=== PATIENT | male | born 1950 | race Caucasian/White ===

== ENCOUNTER 2017-04-30 11:23 | Outpatient (CLI) | payer MEDICARE, OTHER ==
--- NOTE | 2017-04-30 17:19 | Ultrasound Report ---
THYROID ULTRASOUND: 04/30/2017 CLINICAL INDICATION: Left nodule. TECHNIQUE: Real-time scanning was performed with senior patient account representative static images obtained. The right lobe measures 5.2 x 1.8 x 1.8 cm, and the left lobe measures 4.9 x 2.1 x 1.6 cm. The isthm us measures 4 mm. In the mid portion of the left lobe, there is an isoechoic, smoothly marginated no dule, measuring 1.5 x 1.1 x 0.9 cm. In the upper pole of the right lobe, there is a hypoechoic, smoo thly marginated nodule, measuring 0.7 x 0.7 x 0.5 cm. IMPRESSION: LOW SUSPICION NODULES BY NEETU CRITERIA. FINE NEEDLE ASPIRATION IS NOT RECOMMENDED. JOB #: [id number] JOB #:[id number]
== END 2017-04-30 11:24 | disposition home or self-care (01) ==
LOC: DI 11:23
PROVIDERS: ATTEND Family Medicine
DX: E04.1 Nontoxic single thyroid nodule (principal)
CPT/HCPCS: 76536